=== PATIENT | female | born 1955 | race Caucasian/White ===

== ENCOUNTER 2021-02-05 09:27 | Emergency (ER) | payer MEDICARE, BC ==
[2021-02-05] MEDS ORDERED: predniSONE 10 MG Tab ONE (10:50)
[2021-02-05] MEDS ORDERED: Azithromycin 250 MG Tab ONE (10:50)
--- NOTE | 2021-02-05 11:22 | EDM.PDOC ---
ED HPI GENERAL MEDICAL PROBLEM - General Chief Complaint: Respiratory Problem Stated Complaint: PRODUCTIVE COUGH Time Seen by Provider: 02/05/21 10:45 Source of Information: Reports: Patient, RN Notes Reviewed History Limitations: Reports: No Limitations - History of Present Illness INITIAL COMMENTS - FREE TEXT/NARRATIVE: This patient presents to the emergency department for evaluation of asthma. She has a history of asthma and uses a rescue inhaler but has started to need it more since she developed a respiratory infection 4 days ago. She had a fever with it today. She is coughing and is a little short of breath. She states that she is coughing up some yellowish discharge. Appetite is good, denies nausea, vomiting or diarrhea. She has been COVID immunized and got a booster shot of late. 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 Musculoskeletal History: Reports: None Neurological History: Reports: None Psychiatric History: Reports: None Endocrine/Metabolic History: Reports: None Hematologic History: Reports: None Immunologic History: Reports: None Oncologic (Cancer) History: Reports: None Dermatologic History: Reports: None - Past Surgical History Head Surgeries/Procedures: Reports: None HEENT Surgical History: Reports: None Cardiovascular Surgical History: Reports: None Respiratory Surgical History: Reports: None Female Surgical History: Reports: Section Endocrine Surgical History: Reports: None Neurological Surgical History: Reports: None Musculoskeletal Surgical History: Reports: None Dermatological Surgical History: Reports: None Social & Family History - Tobacco Use Tobacco Use Status *Q: Never Tobacco User Second Hand Smoke Exposure: No - Caffeine Use Caffeine Use: Reports: Coffee Other Caffeine Use: 1-2 cups a day - Recreational Drug Use Recreational Drug Use: No ED ROS GENERAL - Review of Systems Review Of Systems: Comprehensive ROS is negative, except as noted in HPI. ED EXAM, GENERAL - Physical Exam Exam: See Below Exam Limited By: No Limitations General Appearance: Alert, No Apparent Distress (Did not bring down her the metoprolol but) Eye Exam: Bilateral Eye: Normal Inspection (Might have some to do with her), PERRL ( she should be on that she just needs to stay on) Ears: Normal External Exam ( confusion) Nose: Normal Inspection Throat/Mouth: Normal Inspection, Normal Oropharynx (I hope) Head: Atraumatic, Normocephalic Neck: Normal Inspection, Non-Tender, Full Range of Motion Respiratory/Chest: No Respiratory Distress, No Accessory Muscle Use, Other (Breath sounds equal with decreased air entry in the bases, occasional expiratory wheezes noted.) Neurological: Alert, Oriented Skin Exam: Warm, Dry, Intact, Normal Color Course - Orders/Labs/Meds Labs: Laboratory Tests 02/05/21 Range/Units 09:46 SARS CoV-2 RNA Rapid DILIA Negative - Re-Assessments/Exams Free Text/Narrative Re-Assessment/Exam: 02/05/21 11:19 This patient presents to the emergency department for evaluation of shortness of breath and wheezing. Signs and symptoms are consistent with an asthma exacerbation. A broad differential was considered including foreign body aspiration, asthma exacerbation, pneumonia, bronchitis, pneumothorax, cardiac equivalent, viral induced wheezing, allergic phenomena etc. Given the decreased breath sounds I will start her on a oral antibiotic and a 5-day course of prednisone. There are no signs at this point of a serious etiology for her symptoms. There is no indication for hospitalization at this time including no hypoxia, no marked increase in her work of breathing. She will do supportive outpatient management, continue her MDI use at home. She will follow-up with her primary care provider or return to the ER as needed. 02/05/21 11:21 Departure - Departure Time of Disposition: 11:10 Disposition: Home, Self-Care 01 Clinical Impression: Asthma exacerbation - Discharge Information *PRESCRIPTION DRUG MONITORING PROGRAM REVIEWED*: Not Applicable *COPY OF PRESCRIPTION DRUG MONITORING REPORT IN PATIENT RAFAEL: Not Applicable Instructions: Asthma, Adult, [id number] Referrals: PCP,None [Primary Care Provider] - Forms: ED Department Discharge Additional Instructions: Dc with DC instructions. Zithromycin take 2 tab to day then one daily until gone. Take prednisone 4 tab (40mg) daily for 5 days. Verb understanding. Sepsis Event Note (ED) - Evaluation Sepsis Screening Result: No Definite Risk
== END 2021-02-05 10:53 | disposition home or self-care (01) ==
LOC: LB.ED 09:27
DX: J45.901 Unspecified asthma with (acute) exacerbation (principal); Z20.822 Contact with and (suspected) exposure to COVID-19
CPT/HCPCS: 99284; A9270-GY; J7512; U0002